=== PATIENT | female | born 1975 | race Caucasian/White ===

== ENCOUNTER 2020-11-28 06:06 | Emergency (ER) | payer MEDICAID ==
[~2020-11-28] VITALS: Ht 162.6 cm; Wt 81.8 kg
[2020-11-28 06:57] LABS: BASOPHILS % (AUTO) 1.1 % (0.0-2.0); EOSINOPHILS % (AUTO) 0.9 % (1.0-6.0); HEMATOCRIT 39.7 % (36-46); HEMOGLOBIN 12.9 g/dL (12.0-16.0); LYMPHOCYTES % (AUTO) 26.5 % (22.0-44.0); MEAN CORPUSCULAR HEMOGLOBIN 28.6 pg (26.0-34.0); MEAN CORPUSCULAR HGB CONC 32.6 G/dL (31.0-37.0); MEAN CORPUSCULAR VOLUME 88 fL (80-100); MONOCYTES # (AUTO) 0.6 K/uL (0.1-1.0); MONOCYTES % (AUTO) 7.6 % (2.0-9.0); NEUTROPHILS # (AUTO) 4.8 K/uL (1.8-7.7); NEUTROPHILS % (AUTO) 63.9 % (40.0-70.0); PLATELET COUNT (AUTO) 330 K/uL (150-450); RED BLOOD CELL COUNT(AUTO) 4.53 MIL/uL (4.00-5.20); RED CELL DISTRIBUTION WIDTH 13.7 % (11.5-14.5)
[2020-11-28 07:12] LABS: ANION GAP 3 mmol/L (8-16); CALCIUM, TOTAL 8.6 mg/dL (8.8-10.5); CARBON DIOXIDE 30 mmol/L (22-29); CHLORIDE 107 mmol/L (98-107); CREATININE 0.92 mg/dL (0.60-1.30); GLOMERULAR FILTR. RATE CALC > 60 mL/min (>60); GLUCOSE,RANDOM 102 mg/dL (70-110); POTASSIUM 4.7 mmol/L (3.5-5.1); SODIUM SERUM 140 mmol/L (136-145); UREA NITROGEN, BLOOD 11 mg/dL (7-18)
[2020-11-28 07:26] LABS: ALANINE AMINOTRANSFERASE 22 U/L (12-78); ALBUMIN 3.6 g/dL (3.4-5.0); ALKALINE PHOSPHATASE 82 U/L (46-116); ASPARTATE AMINOTRANSFERASE 15 U/L (15-37); BILIRUBIN,TOTAL 0.3 mg/dL (0.1-1.0); HCG,QUANTITATIVE < 1 mIU/mL (0-6); TOTAL PROTEIN, SERUM 7.3 g/dL (6.4-8.2)
[2020-11-28 08:49] VITALS: BP 131/72
== END 2020-11-28 08:53 | disposition home or self-care (01) ==
LOC: EMS 06:11
DX: F32.9 Major depressive disorder, single episode, unspecified (principal); F41.9 Anxiety disorder, unspecified
CPT/HCPCS: 36415; 80053; 84702; 85025; 99284; G0480

== ENCOUNTER 2022-11-02 15:24 | Inpatient (IN) | payer MEDICAID ==
[~2022-11-02] VITALS: Ht 162.6 cm; Wt 79.4 kg
[2022-11-02] MEDS ORDERED: LEVE250T PO (15:27)
[2022-11-02 17:11] LABS: AMPHET/METH SCREEN,URINE NEGATIVE (NEGATIVE); BARBITURATE SCREEN, URINE NEGATIVE (NEGATIVE); BENZODIAZEPINES SCREEN,URINE NEGATIVE (NEGATIVE); CANNABINOID SCREEN,URINE NEGATIVE (NEGATIVE); COCAINE SCREEN,URINE NEGATIVE (NEGATIVE); METHADONE SCREEN, URINE NEGATIVE (NEGATIVE); OPIATE SCREEN,URINE NEGATIVE (NEGATIVE); PHENCYCLIDINE SCREEN,URINE NEGATIVE (NEGATIVE)
[2022-11-02] MEDS ORDERED: ZOLPIDEM TARTRATE 10 MG TABLET PO PRN (17:15)
[2022-11-02] MEDS ORDERED: HALOPERIDOL 5 MG TABLET PO PRN (17:15)
[2022-11-02 17:33] LABS: APPEARANCE,URINE CLEAR (CLEAR); BILIRUBIN,URINE NEGATIVE (NEGATIVE); GLUCOSE, URINE (UA) NEGATIVE (NEGATIVE); KETONES,URINE NEGATIVE (NEGATIVE); LEUKOCYTE ESTERASE ,URINE NEGATIVE (NEGATIVE); NITRATE,URINE NEGATIVE (NEGATIVE); OCCULT BLOOD,URINE MODERATE (NEGATIVE); PH,URINE 5.5 (5.0-8.0); PROTEIN,URINE NEGATIVE (NEGATIVE); SPECIFIC GRAVITIY, URINE 1.011 (1.003-1.030); UROBILINOGEN,URINE <=1.0 mg/dL (<=1.0)
[2022-11-02 17:43] LABS: BACTERIA,URINE None Seen /HPF (None Seen); SQUAMOUS EPITHELIAL CELL,UR Few /LPF (None Seen); WBC,URINE None Seen /HPF (0-5)
[2022-11-02 17:51] LABS: BASOPHILS % (AUTO) 0.4 % (0.0-2.0); EOSINOPHILS % (AUTO) 0.9 % (1.0-6.0); HEMATOCRIT 37.3 % (36-46); LYMPHOCYTES # (AUTO) 2.9 K/uL (1.0-4.8); LYMPHOCYTES % (AUTO) 37.5 % (22.0-44.0); MEAN CORPUSCULAR HEMOGLOBIN 28.8 pg (26.0-34.0); MEAN CORPUSCULAR HGB CONC 32.3 G/dL (31.0-37.0); MEAN CORPUSCULAR VOLUME 89 fL (80-100); MONOCYTES # (AUTO) 0.6 K/uL (0.1-1.0); MONOCYTES % (AUTO) 8.2 % (2.0-9.0); NEUTROPHILS # (AUTO) 4.1 K/uL (1.8-7.7); PLATELET COUNT (AUTO) 293 K/uL (150-450); RED BLOOD CELL COUNT(AUTO) 4.17 MIL/uL (4.00-5.20); RED CELL DISTRIBUTION WIDTH 12.9 % (11.5-14.5)
[2022-11-02 18:03] LABS: ANION GAP 8 mmol/L (8-16); CALCIUM, TOTAL 8.8 mg/dL (8.8-10.5); CARBON DIOXIDE 26 mmol/L (22-29); CHLORIDE 105 mmol/L (98-107); CREATININE 0.91 mg/dL (0.60-1.30); GLOMERULAR FILTR. RATE CALC > 60 mL/min (>60); GLUCOSE,RANDOM 110 mg/dL (70-110); POTASSIUM 3.8 mmol/L (3.5-5.1); SODIUM SERUM 139 mmol/L (136-145)
[2022-11-02 18:11] LABS: ALANINE AMINOTRANSFERASE 12 U/L (12-78); ALBUMIN 3.3 g/dL (3.4-5.0); ALKALINE PHOSPHATASE 68 U/L (46-116); ASPARTATE AMINOTRANSFERASE 15 U/L (15-37); TOTAL PROTEIN, SERUM 6.4 g/dL (6.4-8.2)
[2022-11-02 18:12] LABS: BILIRUBIN,TOTAL 0.1 mg/dL (0.1-1.0)
[2022-11-02 19:27] LABS: COVID AG,FIA SOURCE NASAL SWAB
[2022-11-03] MEDS: LORazepam 2 MG TABLET PO PRN ×2 (12:22→19:47)
[2022-11-03] MEDS ORDERED: MAG HYDROX/AL HYDROX/SIMETH ES 30 ML SUSPENSION UDCUP PO PRN (14:45)
[2022-11-03] MEDS ORDERED: PETROLATUM,WHITE 28 GM JELLY TP PRN (14:45)
[2022-11-03] MEDS ORDERED: MAGNESIUM HYDROXIDE SUSPENSION 30 ML UDCUP PO PRN (14:45)
[2022-11-03] MEDS ORDERED: DOCUSATE SODIUM 100 MG CAPSULE PO PRN (14:45)
[2022-11-03] MEDS ORDERED: ONDANSETRON HCL 4 MG TABLET PO PRN (14:45)
[2022-11-03] MEDS ORDERED: IBUPROFEN 400 MG TABLET PO PRN (14:45)
[2022-11-03] MEDS ORDERED: NICOTINE 14 MG/24 HOUR PATCH TD PRN (14:45)
[2022-11-03] MEDS ORDERED: LOPERAMIDE HCL 2 MG CAPSULE PO PRN (14:45)
[2022-11-03] MEDS ORDERED: GuaiFENesin/D-METHORPHAN [SUGAR-FREE] 200-20MG/10 ML SYRUP UDCUP PO PRN (14:45)
[2022-11-03] MEDS ORDERED: ACETAMINOPHEN 325 MG TABLET PO PRN (14:45)
[2022-11-03] MEDS ORDERED: ALBUTEROL SULFATE HFA 90 MCG/PUFF 8 GM INHALER IH PRN (14:45)
[2022-11-03] MEDS ORDERED: CloNIDine HCL 0.1 MG TABLET PO PRN (14:45)
[2022-11-03 15:28] VITALS: BP 137/89; PULSE 84; RESP 18; TEMP 98.4; O2SAT 97
[2022-11-03] MEDS: LevETIRAcetam 250 MG TABLET PO SCH (17:13)
[2022-11-03 20:10] VITALS: BP 126/66; PULSE 56; RESP 19; TEMP 97.7; O2SAT 97
[2022-11-04] MEDS ORDERED: LORazepam 2 MG/ML VIAL ONE (08:24)
[2022-11-04] MEDS ORDERED: HALOPERIDOL LACTATE 5 MG/ML VIAL ONE (08:25)
[2022-11-04] MEDS ORDERED: DiphenhydrAMINE HCL 50 MG/ML VIAL ONE (08:25)
[2022-11-04] MEDS ORDERED: LORazepam 2 MG/ML VIAL IM ONE (08:30)
[2022-11-04] MEDS ORDERED: DiphenhydrAMINE HCL 50 MG/ML VIAL IM ONE (08:30)
[2022-11-04] MEDS ORDERED: HALOPERIDOL LACTATE 5 MG/ML VIAL IM ONE (08:30)
[2022-11-04 08:43] LABS: CHOL/HDL RATIO 2.6 (3.9-5.7); THYROID STIMULATING HORMONE 1.44 uIU/mL (0.36-3.74)
[2022-11-04] MEDS: LevETIRAcetam 250 MG TABLET PO SCH ×2 (08:51→16:54)
[2022-11-04] MEDS ORDERED: RisperiDONE 1 MG TABLET PO SCH (11:45)
[2022-11-04 18:30] VITALS: BP 115/75; PULSE 66; RESP 16; TEMP 97.8
== END 2022-11-04 17:40 | disposition left against medical advice (07) | DRG 753 ==
LOC: EMS 15:27 → 3EX 11-03 03:52 → UNDOADMIN 11-03 03:52 → B2S 11-03 11:13
PROVIDERS: ADMIT Psychiatry & Neurology Child & Adolescent Psychiatry; ATTEND Psychiatry & Neurology Child & Adolescent Psychiatry
DX: F31.4 Bipolar disorder, current episode depressed, severe, without psychotic features (principal); G40.909 Epilepsy, unspecified, not intractable, without status epilepticus; R45.851 Suicidal ideations; Z20.822 Contact with and (suspected) exposure to COVID-19; E78.5 Hyperlipidemia, unspecified; F41.9 Anxiety disorder, unspecified; F43.10 Post-traumatic stress disorder, unspecified; G47.00 Insomnia, unspecified; Z91.048 Other nonmedicinal substance allergy status; Z98.891 History of uterine scar from previous surgery
CPT/HCPCS: 74018; 80053; 80061; 80307; 81001; 83036; 84443; 85025; 99285; G0480; J1200; J1630; J2060; 36415-L1; 36415-TC

== ENCOUNTER 2023-02-06 21:04 | Inpatient (IN) | payer MEDICAID ==
[~2023-02-06] VITALS: Ht 162.6 cm; Wt 90.1 kg
[2023-02-06] MEDS ORDERED: ZOLPIDEM TARTRATE 10 MG TABLET PO PRN (22:45)
[2023-02-07] MEDS ORDERED: PNEUMOCOCCAL VACCINE POLYVALENT 0.5 ML SYRINGE [PPSV23] IM. ONE (06:15)
[2023-02-07] MEDS ORDERED: INFLUENZA VIRUS VACCINE QVS 2023-24 (6MO+)/PF 60 MCG/0.5 ML SYRINGE IM. ONE (06:15)
[2023-02-07 08:53] VITALS: BP 100/60; PULSE 54; RESP 18; TEMP 98.1; O2SAT 99
[2023-02-07] MEDS ORDERED: MAGNESIUM HYDROXIDE SUSPENSION 30 ML UDCUP PO PRN (11:45)
[2023-02-07] MEDS ORDERED: GuaiFENesin/D-METHORPHAN [SUGAR-FREE] 200-20MG/10 ML SYRUP UDCUP PO PRN (11:45)
[2023-02-07] MEDS ORDERED: LOPERAMIDE HCL 2 MG CAPSULE PO PRN (11:45)
[2023-02-07] MEDS ORDERED: CloNIDine HCL 0.1 MG TABLET PO PRN (11:45)
[2023-02-07] MEDS ORDERED: PETROLATUM,WHITE 28 GM JELLY TP PRN (11:45)
[2023-02-07] MEDS ORDERED: IBUPROFEN 400 MG TABLET PO PRN (11:45)
[2023-02-07] MEDS ORDERED: MAG HYDROX/ALUMINUM HYD/SIMETH ES 30 ML SUSPENSION UDCUP PO PRN (11:45)
[2023-02-07] MEDS ORDERED: ONDANSETRON HCL 4 MG TABLET PO PRN (11:45)
[2023-02-07] MEDS ORDERED: NICOTINE 14 MG/24 HOUR PATCH TD PRN (11:45)
[2023-02-07] MEDS ORDERED: ALBUTEROL SULFATE HFA 90 MCG/PUFF 8 GM INHALER IH PRN (11:45)
[2023-02-07] MEDS ORDERED: ACETAMINOPHEN 325 MG TABLET PO PRN (11:45)
[2023-02-07] MEDS ORDERED: DOCUSATE SODIUM 100 MG CAPSULE PO PRN (11:45)
[2023-02-07] MEDS: LORazepam 2 MG TABLET PO PRN (18:03)
[2023-02-07 20:54] VITALS: BP 122/84; PULSE 73; RESP 18; TEMP 97.8; O2SAT 98
[2023-02-08] MEDS: LORazepam 2 MG TABLET PO PRN (07:45)
[2023-02-08] MEDS: HALOPERIDOL 5 MG TABLET PO PRN (07:45)
[2023-02-08 08:06] LABS: HEMOGLOBIN A1C 4.9 % (3.8-5.6)
[2023-02-08 08:18] LABS: THYROID STIMULATING HORMONE 1.33 uIU/mL (0.36-3.74)
[2023-02-08 08:35] VITALS: BP 120/75; PULSE 73; RESP 16; TEMP 97.6; O2SAT 97
[2023-02-08] MEDS: QUEtiapine FUMARATE 25 MG TABLET PO SCH (20:54)
[2023-02-09 01:08] VITALS: BP 104/58; PULSE 56; RESP 17; TEMP 97.6; O2SAT 96
[2023-02-09 08:06] VITALS: BP 141/71; PULSE 87; RESP 18; TEMP 98; O2SAT 96
[2023-02-09] MEDS: LORazepam 2 MG TABLET PO PRN (08:11)
[2023-02-09] MEDS: HALOPERIDOL 5 MG TABLET PO PRN (08:11)
[2023-02-09] MEDS: QUEtiapine FUMARATE 25 MG TABLET PO SCH (20:03)
[2023-02-09 21:48] VITALS: BP 95/54; PULSE 97; RESP 18; TEMP 97.6; O2SAT 95
[2023-02-10 08:06] LABS: HEPATITIS C AB (EIA) Non Reactive (Non Reactive)
[2023-02-10] MEDS: HALOPERIDOL 5 MG TABLET PO PRN (08:12)
[2023-02-10] MEDS: LORazepam 2 MG TABLET PO PRN (08:12)
[2023-02-10 08:17] VITALS: BP 139/85; PULSE 98; RESP 18; TEMP 98; O2SAT 96
[2023-02-10 08:20] LABS: APPEARANCE,URINE HAZY (CLEAR); BILIRUBIN,URINE NEGATIVE (NEGATIVE); COLOR,URINE YELLOW (YELLOW); GLUCOSE, URINE (UA) NEGATIVE (NEGATIVE); KETONES,URINE NEGATIVE (NEGATIVE); LEUKOCYTE ESTERASE ,URINE LARGE (NEGATIVE); NITRATE,URINE NEGATIVE (NEGATIVE); OCCULT BLOOD,URINE NEGATIVE (NEGATIVE); PROTEIN,URINE TRACE mg/dL (NEGATIVE); SPECIFIC GRAVITIY, URINE 1.023 (1.003-1.030); UROBILINOGEN,URINE <=1.0 mg/dL (<=1.0)
[2023-02-10 08:26] LABS: ALCOHOL, URINE DRUG SCREEN NEGATIVE (NEGATIVE); AMPHET/METH SCREEN,URINE NEGATIVE (NEGATIVE); BARBITURATE SCREEN, URINE NEGATIVE (NEGATIVE); BENZODIAZEPINES SCREEN,URINE NEGATIVE (NEGATIVE); CANNABINOID SCREEN,URINE NEGATIVE (NEGATIVE); COCAINE SCREEN,URINE NEGATIVE (NEGATIVE); METHADONE SCREEN, URINE NEGATIVE (NEGATIVE); OPIATE SCREEN,URINE NEGATIVE (NEGATIVE); PHENCYCLIDINE SCREEN,URINE NEGATIVE (NEGATIVE)
[2023-02-10 08:43] LABS: BACTERIA,URINE Moderate /HPF (None Seen); RBC,URINE 0-2 /HPF (0-2); SQUAMOUS EPITHELIAL CELL,UR Moderate /LPF (None Seen)
[2023-02-10] MEDS: QUEtiapine FUMARATE 25 MG TABLET PO SCH (20:01)
[2023-02-10 23:45] VITALS: BP 118/80; PULSE 97; RESP 18; TEMP 98.1; O2SAT 98
[2023-02-11 08:44] VITALS: BP 137/91; PULSE 92; RESP 18; TEMP 97.9; O2SAT 97
[2023-02-11] MEDS: LORazepam 2 MG TABLET PO PRN (09:15)
[2023-02-11] MEDS ORDERED: QUET25TA PO (12:25)
[2023-02-11] MEDS ORDERED: QUET25TA36 PO (17:49)
== END 2023-02-11 15:00 | disposition home or self-care (01) | DRG 750 ==
LOC: B3A 02-07 07:44
PROVIDERS: ADMIT Psychiatry & Neurology Psychiatry; ATTEND Psychiatry & Neurology Psychiatry
PROC: GZHZZZZ Group Psychotherapy (ICD-10-PCS; principal; 2023-02-07)
DX: F25.1 Schizoaffective disorder, depressive type (principal); R45.851 Suicidal ideations; F43.12 Post-traumatic stress disorder, chronic; K59.00 Constipation, unspecified; G47.00 Insomnia, unspecified; F41.9 Anxiety disorder, unspecified; Z79.899 Other long term (current) drug therapy; Z59.00 Homelessness unspecified
CPT/HCPCS: 80307; 81001; 83036; 84443; 86803; 87086; 87186; 87340; 90686; 90732

== ENCOUNTER 2023-02-06 23:27 | Emergency (ER) | payer MEDICAID ==
[~2023-02-06] VITALS: Ht 162.6 cm; Wt 68.2 kg
[2023-02-06 23:54] VITALS: BP 148/82; PULSE 52; RESP 16; TEMP 98
[2023-02-07 01:02] LABS: BASOPHILS % (AUTO) 1.1 % (0.0-2.0); EOSINOPHILS % (AUTO) 1.3 % (1.0-6.0); HEMATOCRIT 35.1 % (36-46); HEMOGLOBIN 11.7 g/dL (12.0-16.0); LYMPHOCYTES # (AUTO) 3.6 K/uL (1.0-4.8); LYMPHOCYTES % (AUTO) 46.3 % (22.0-44.0); MEAN CORPUSCULAR HEMOGLOBIN 29.5 pg (26.0-34.0); MEAN CORPUSCULAR HGB CONC 33.4 G/dL (31.0-37.0); MEAN CORPUSCULAR VOLUME 88 fL (80-100); MONOCYTES # (AUTO) 0.6 K/uL (0.1-1.0); MONOCYTES % (AUTO) 8.2 % (2.0-9.0); NEUTROPHILS # (AUTO) 3.3 K/uL (1.8-7.7); NEUTROPHILS % (AUTO) 43.1 % (40.0-70.0); PLATELET COUNT (AUTO) 299 K/uL (150-450); RED BLOOD CELL COUNT(AUTO) 3.97 MIL/uL (4.00-5.20); RED CELL DISTRIBUTION WIDTH 12.7 % (11.5-14.5); WHITE BLOOD COUNT (AUTO) 7.7 K/uL (4.5-11.0)
[2023-02-07 01:15] LABS: ALCOHOL, BLOOD (SERUM) < 3 mg/dL (0-10)
[2023-02-07 01:22] LABS: ANION GAP 3 mmol/L (8-16); CALCIUM, TOTAL 8.6 mg/dL (8.8-10.5); CARBON DIOXIDE 28 mmol/L (22-29); CHLORIDE 103 mmol/L (98-107); CREATININE 1.19 mg/dL (0.60-1.30); GLOMERULAR FILTR. RATE CALC 49 mL/min (>60); GLUCOSE,RANDOM 100 mg/dL (70-110); POTASSIUM 3.7 mmol/L (3.5-5.1); SODIUM SERUM 134 mmol/L (136-145); UREA NITROGEN, BLOOD 20 mg/dL (7-18)
[2023-02-07 01:27] LABS: ALANINE AMINOTRANSFERASE 16 U/L (12-78); ALBUMIN 3.2 g/dL (3.4-5.0); ALKALINE PHOSPHATASE 74 U/L (46-116); ASPARTATE AMINOTRANSFERASE 13 U/L (15-37); BILIRUBIN,TOTAL 0.2 mg/dL (0.1-1.0); TOTAL PROTEIN, SERUM 6.7 g/dL (6.4-8.2)
[2023-02-07 04:15] LABS: COVID AG,FIA SOURCE NASAL SWAB
[2023-02-07 04:33] LABS: SARS-COV2 (COVID) ANTIGEN,FIA Negative (Negative)
== END 2023-02-07 07:37 ==
LOC: EMS 23:28
DX: F31.9 Bipolar disorder, unspecified (principal); F41.9 Anxiety disorder, unspecified; R56.9 Unspecified convulsions; Z20.822 Contact with and (suspected) exposure to COVID-19; Z98.890 Other specified postprocedural states
CPT/HCPCS: 99285; 87426; 80053; 85025; G0480

== ENCOUNTER 2023-02-07 10:15 | Emergency (ER) | payer MEDICAID, OTHER ==
[~2023-02-07] VITALS: Ht 162.6 cm; Wt 86.4 kg
[2023-02-07 10:44] VITALS: BP 141/87; PULSE 80; RESP 16; TEMP 98.3
[2023-02-07 11:05] LABS: BASOPHILS % (AUTO) 1.2 % (0.0-2.0); EOSINOPHILS % (AUTO) 1.1 % (1.0-6.0); HEMATOCRIT 38.1 % (36-46); HEMOGLOBIN 12.8 g/dL (12.0-16.0); LYMPHOCYTES # (AUTO) 1.5 K/uL (1.0-4.8); MEAN CORPUSCULAR HGB CONC 33.7 G/dL (31.0-37.0); MEAN CORPUSCULAR VOLUME 89 fL (80-100); MONOCYTES # (AUTO) 0.3 K/uL (0.1-1.0); MONOCYTES % (AUTO) 6.7 % (2.0-9.0); NEUTROPHILS # (AUTO) 3.1 K/uL (1.8-7.7); PLATELET COUNT (AUTO) 311 K/uL (150-450); RED BLOOD CELL COUNT(AUTO) 4.28 MIL/uL (4.00-5.20); RED CELL DISTRIBUTION WIDTH 12.8 % (11.5-14.5)
[2023-02-07 11:23] LABS: ANION GAP 7 mmol/L (8-16); CALCIUM, TOTAL 8.8 mg/dL (8.8-10.5); CARBON DIOXIDE 27 mmol/L (22-29); CHLORIDE 104 mmol/L (98-107); CREATININE 0.94 mg/dL (0.60-1.30); GLOMERULAR FILTR. RATE CALC > 60 mL/min (>60); GLUCOSE,RANDOM 94 mg/dL (70-110); SODIUM SERUM 138 mmol/L (136-145); UREA NITROGEN, BLOOD 15 mg/dL (7-18)
[2023-02-07 11:29] LABS: TROPONIN I-HIGH SENSITIVITY 9 ng/L (<51)
[2023-02-07 11:47] LABS: APPEARANCE,URINE CLEAR (CLEAR); BILIRUBIN,URINE NEGATIVE (NEGATIVE); COLOR,URINE LIGHT YELLOW (YELLOW); GLUCOSE, URINE (UA) NEGATIVE (NEGATIVE); KETONES,URINE NEGATIVE (NEGATIVE); LEUKOCYTE ESTERASE ,URINE TRACE (NEGATIVE); NITRATE,URINE NEGATIVE (NEGATIVE); OCCULT BLOOD,URINE NEGATIVE (NEGATIVE); PH,URINE 6.5 (5.0-8.0); PH,URINE DRUG SCREEN 6.5 (5.0-8.0); PROTEIN,URINE NEGATIVE (NEGATIVE); SPECIFIC GRAVITIY, URINE 1.017 (1.003-1.030); UROBILINOGEN,URINE <=1.0 mg/dL (<=1.0)
[2023-02-07 11:48] LABS: ALANINE AMINOTRANSFERASE 19 U/L (12-78); ALBUMIN 3.7 g/dL (3.4-5.0); ALKALINE PHOSPHATASE 82 U/L (46-116); ASPARTATE AMINOTRANSFERASE 16 U/L (15-37); BILIRUBIN,TOTAL 0.3 mg/dL (0.1-1.0); CREATINE KINASE, TOTAL ONLY 101 U/L (26-192); HCG,QUANTITATIVE 2 mIU/mL (0-6); TOTAL PROTEIN, SERUM 7.4 g/dL (6.4-8.2)
[2023-02-07 11:53] LABS: ALCOHOL, BLOOD (SERUM) < 3 mg/dL (0-10)
[2023-02-07 11:54] LABS: B-TYPE NATRIURETIC PEPTIDE 39 pg/mL (0-100)
[2023-02-07 11:54] LABS: BACTERIA,URINE None Seen /HPF (None Seen); RBC,URINE None Seen /HPF (0-2); SQUAMOUS EPITHELIAL CELL,UR Rare /LPF (None Seen); WBC,URINE 0-2 /HPF (0-5)
[2023-02-07 12:00] LABS: ALCOHOL, URINE DRUG SCREEN NEGATIVE (NEGATIVE); AMPHET/METH SCREEN,URINE NEGATIVE (NEGATIVE); BARBITURATE SCREEN, URINE NEGATIVE (NEGATIVE); BENZODIAZEPINES SCREEN,URINE NEGATIVE (NEGATIVE); CANNABINOID SCREEN,URINE NEGATIVE (NEGATIVE); COCAINE SCREEN,URINE NEGATIVE (NEGATIVE); METHADONE SCREEN, URINE NEGATIVE (NEGATIVE); OPIATE SCREEN,URINE NEGATIVE (NEGATIVE); PHENCYCLIDINE SCREEN,URINE NEGATIVE (NEGATIVE)
== END 2023-02-07 13:54 | disposition home or self-care (01) ==
LOC: EMS 10:19
DX: R45.851 Suicidal ideations (principal); F41.9 Anxiety disorder, unspecified; F31.9 Bipolar disorder, unspecified; Z98.890 Other specified postprocedural states; Z04.6 Encounter for general psychiatric examination, requested by authority
CPT/HCPCS: 99285; 70450; 71045; 80053; 82140; 82550; 83880; 84484; 84702; 85025; 36415; 93005; 80307; 81001; G0480

== ENCOUNTER 2023-07-30 10:36 | Inpatient (IN) | payer MEDICAID, OTHER ==
[~2023-07-30] VITALS: Ht 162.6 cm; Wt 90.4 kg
[~2023-07-30 10:36] MED LIST: QUET25TA PO; QUET25TA36 PO
[2023-07-30 11:49] LABS: BASOPHILS % (AUTO) 0.7 % (0.0-2.0); EOSINOPHILS % (AUTO) 0.4 % (1.0-6.0); HEMATOCRIT 41.6 % (36-46); HEMOGLOBIN 14.1 g/dL (12.0-16.0); LYMPHOCYTES # (AUTO) 2.4 K/uL (1.0-4.8); LYMPHOCYTES % (AUTO) 25.5 % (22.0-44.0); MEAN CORPUSCULAR HEMOGLOBIN 29.8 pg (26.0-34.0); MEAN CORPUSCULAR HGB CONC 33.9 G/dL (31.0-37.0); MEAN CORPUSCULAR VOLUME 88 fL (80-100); MONOCYTES # (AUTO) 0.6 K/uL (0.1-1.0); MONOCYTES % (AUTO) 6.1 % (2.0-9.0); NEUTROPHILS # (AUTO) 6.3 K/uL (1.8-7.7); NEUTROPHILS % (AUTO) 67.3 % (40.0-70.0); PLATELET COUNT (AUTO) 383 K/uL (150-450); RED BLOOD CELL COUNT(AUTO) 4.73 MIL/uL (4.00-5.20); RED CELL DISTRIBUTION WIDTH 12.9 % (11.5-14.5); WHITE BLOOD COUNT (AUTO) 9.4 K/uL (4.5-11.0)
[2023-07-30 11:59] LABS: ANION GAP 9 mmol/L (8-16); CALCIUM, TOTAL 9.1 mg/dL (8.8-10.5); CARBON DIOXIDE 25 mmol/L (22-29); CHLORIDE 103 mmol/L (98-107); CREATININE 0.84 mg/dL (0.60-1.30); GLOMERULAR FILTR. RATE CALC > 60 mL/min (>60); GLUCOSE,RANDOM 98 mg/dL (70-110); POTASSIUM 4.1 mmol/L (3.5-5.1); SODIUM SERUM 137 mmol/L (136-145); UREA NITROGEN, BLOOD 11 mg/dL (7-18)
[2023-07-30 12:01] LABS: ALCOHOL, BLOOD (SERUM) < 3 mg/dL (0-10)
[2023-07-30 13:51] LABS: ALCOHOL, URINE DRUG SCREEN NEGATIVE (NEGATIVE); AMPHET/METH SCREEN,URINE NEGATIVE (NEGATIVE); BARBITURATE SCREEN, URINE NEGATIVE (NEGATIVE); BENZODIAZEPINES SCREEN,URINE NEGATIVE (NEGATIVE); CANNABINOID SCREEN,URINE NEGATIVE (NEGATIVE); COCAINE SCREEN,URINE NEGATIVE (NEGATIVE); METHADONE SCREEN, URINE NEGATIVE (NEGATIVE); OPIATE SCREEN,URINE NEGATIVE (NEGATIVE); PHENCYCLIDINE SCREEN,URINE NEGATIVE (NEGATIVE)
[2023-07-30 14:48] LABS: COVID AG,FIA SOURCE NASAL SWAB
[2023-07-30 15:39] LABS: SARS-COV2 (COVID) ANTIGEN,FIA Negative (Negative)
[2023-07-30] MEDS: QUEtiapine FUMARATE 100 MG TABLET PO ONE (15:47)
[2023-07-30] MEDS: LORazepam 2 MG TABLET PO ONE (15:48)
[2023-07-30] MEDS ORDERED: HALOPERIDOL 5 MG TABLET PO PRN (22:30)
[2023-07-30 23:55] VITALS: RESP 18
[2023-07-31] MEDS ORDERED: CloNIDine HCL 0.1 MG TABLET PO PRN (06:45)
[2023-07-31] MEDS ORDERED: NICOTINE 14 MG/24 HOUR PATCH TD PRN (06:45)
[2023-07-31] MEDS ORDERED: LOPERAMIDE HCL 2 MG CAPSULE PO PRN (06:45)
[2023-07-31] MEDS ORDERED: MAGNESIUM HYDROXIDE SUSPENSION 30 ML UDCUP PO PRN (06:45)
[2023-07-31] MEDS ORDERED: ALBUTEROL SULFATE HFA 90 MCG/PUFF 8 GM INHALER IH PRN (06:45)
[2023-07-31] MEDS ORDERED: GuaiFENesin/D-METHORPHAN [SUGAR-FREE] 200-20MG/10 ML SYRUP UDCUP PO PRN (06:45)
[2023-07-31] MEDS ORDERED: DOCUSATE SODIUM 100 MG CAPSULE PO PRN (06:45)
[2023-07-31] MEDS ORDERED: PETROLATUM,WHITE 28 GM JELLY TP PRN (06:45)
[2023-07-31] MEDS ORDERED: ONDANSETRON HCL 4 MG TABLET PO PRN (06:45)
[2023-07-31] MEDS ORDERED: MAG HYDROX/ALUMINUM HYD/SIMETH ES 30 ML SUSPENSION UDCUP PO PRN (06:45)
[2023-07-31] MEDS: LORazepam 2 MG TABLET PO PRN (09:08)
[2023-07-31 09:36] VITALS: BP 121/91; PULSE 67; RESP 18; TEMP 98.3
[2023-07-31] MEDS: QUEtiapine FUMARATE 25 MG TABLET PO SCH (21:02)
[2023-07-31 21:46] VITALS: BP 123/86; PULSE 71; RESP 19; TEMP 97.9
[2023-08-01 08:36] LABS: BASOPHILS % (AUTO) 0.2 % (0.0-2.0); HEMATOCRIT 40.9 % (36-46); HEMOGLOBIN 13.5 g/dL (12.0-16.0); LYMPHOCYTES # (AUTO) 2.3 K/uL (1.0-4.8); LYMPHOCYTES % (AUTO) 31.2 % (22.0-44.0); MEAN CORPUSCULAR HEMOGLOBIN 29.4 pg (26.0-34.0); MEAN CORPUSCULAR VOLUME 89 fL (80-100); MONOCYTES # (AUTO) 0.5 K/uL (0.1-1.0); MONOCYTES % (AUTO) 6.7 % (2.0-9.0); NEUTROPHILS # (AUTO) 4.4 K/uL (1.8-7.7); NEUTROPHILS % (AUTO) 60.9 % (40.0-70.0); PLATELET COUNT (AUTO) 352 K/uL (150-450); RED CELL DISTRIBUTION WIDTH 12.8 % (11.5-14.5); WHITE BLOOD COUNT (AUTO) 7.2 K/uL (4.5-11.0)
[2023-08-01 08:53] LABS: HEMOGLOBIN A1C 5.3 % (3.8-5.6)
[2023-08-01] MEDS ORDERED: HALOPERIDOL LACTATE 5 MG/ML VIAL IM ONE (09:00)
[2023-08-01] MEDS ORDERED: LORazepam 2 MG/ML VIAL IM ONE (09:00)
[2023-08-01] MEDS ORDERED: DiphenhydrAMINE HCL 50 MG/ML VIAL IM ONE (09:00)
[2023-08-01 09:10] LABS: CHOL/HDL RATIO 2.7 (3.9-5.7); THYROID STIMULATING HORMONE 1.34 uIU/mL (0.36-3.74)
[2023-08-01 11:03] VITALS: BP 130/68; PULSE 71; RESP 18; TEMP 97.1
[2023-08-01 18:30] VITALS: BP 144/85; PULSE 86; RESP 18; TEMP 97.7; O2SAT 96
[2023-08-01] MEDS: ACETAMINOPHEN 325 MG TABLET PO PRN (18:38)
[2023-08-01 18:45] VITALS: BP 144/85; PULSE 87; TEMP 97.7
[2023-08-01 21:35] VITALS: BP 135/75; PULSE 89; RESP 18; TEMP 97.5
[2023-08-01] MEDS: IBUPROFEN 400 MG TABLET PO PRN (21:38)
[2023-08-01 23:52] VITALS: BP 135/89; PULSE 74; RESP 18; TEMP 97.7
[2023-08-02 10:26] VITALS: BP 133/70; PULSE 68; RESP 18; TEMP 97.7
[2023-08-02 10:45] VITALS: RESP 18
[2023-08-02 11:45] VITALS: BP 128/74; PULSE 70; RESP 18; TEMP 97.6
[2023-08-02] MEDS: BACITRACIN ZINC/POLYMYXIN B 14.2 GM OINTMENT TP SCH (13:27)
[2023-08-02 23:07] VITALS: BP 128/92; PULSE 82; RESP 18; TEMP 97.2
[2023-08-03 09:43] VITALS: BP 123/75; PULSE 67; RESP 16; TEMP 98.1
[2023-08-03 20:57] VITALS: RESP 18
[2023-08-04 09:38] VITALS: BP 150/98; PULSE 69; RESP 18; TEMP 98.2
[2023-08-04 20:57] VITALS: BP 162/86; PULSE 75; RESP 18; TEMP 98.6
[2023-08-05 10:45] VITALS: BP 125/78; PULSE 67; RESP 18; TEMP 97.9
[2023-08-05 20:57] VITALS: BP 139/70; PULSE 63; RESP 18; TEMP 97.8
[2023-08-06 09:20] VITALS: BP 122/77; PULSE 68; RESP 18; TEMP 96.3
[2023-08-06 16:47] VITALS: BP 127/70; PULSE 62; RESP 17
[2023-08-06 17:48] VITALS: BP 124/76; PULSE 64; RESP 18
[2023-08-06] MEDS: ZOLPIDEM TARTRATE 10 MG TABLET PO PRN (21:04)
[2023-08-06 21:10] VITALS: BP 132/89; RESP 19; TEMP 97.3
[2023-08-07 08:00] VITALS: BP 130/76; PULSE 74; RESP 18; TEMP 97
[2023-08-07 23:21] VITALS: BP 142/86; PULSE 67; RESP 18; TEMP 97.8
[2023-08-08 09:25] VITALS: BP 122/88; PULSE 66; RESP 18; TEMP 97.7
[2023-08-08 20:07] VITALS: BP 139/89; PULSE 70; RESP 18; TEMP 97.9
[2023-08-09 09:25] VITALS: BP 137/76; PULSE 63; RESP 18; TEMP 97.6
[2023-08-09 21:02] VITALS: BP 136/77; PULSE 68; RESP 18; TEMP 98.2
[2023-08-10 10:43] VITALS: BP 129/87; PULSE 78; RESP 19; TEMP 97.6
[2023-08-10 21:44] VITALS: BP 131/76; PULSE 68; RESP 18; TEMP 98.4
[2023-08-11 08:28] VITALS: BP 138/79; PULSE 70; RESP 18; TEMP 98.4
[2023-08-11] MEDS: TraZODone HCL 100 MG TABLET PO SCH (21:15)
[2023-08-11 21:31] VITALS: BP 136/79; PULSE 62; RESP 18; TEMP 98.3
[2023-08-12] MEDS ORDERED: TRAZ-257 PO ×2 (09:58→13:47)
[2023-08-12] MEDS ORDERED: QUET25TA36 PO (09:58)
[2023-08-12 10:13] VITALS: BP 136/77; PULSE 80; RESP 18; TEMP 98.5
[2023-08-12] MEDS ORDERED: BACI14.26 TP (13:53)
[2023-08-12] MEDS ORDERED: QUET25TA PO (21:33)
== END 2023-08-12 19:02 | disposition home or self-care (01) | DRG 750 ==
LOC: EMS 10:36 → 3EC 22:43 → 3EI 08-05 15:06
PROVIDERS: ADMIT Psychiatry & Neurology Psychiatry; ATTEND Psychiatry & Neurology Psychiatry
PROC: GZHZZZZ Group Psychotherapy (ICD-10-PCS; principal; 2023-07-31)
DX: F25.0 Schizoaffective disorder, bipolar type (principal); R45.851 Suicidal ideations; F41.9 Anxiety disorder, unspecified; G47.00 Insomnia, unspecified; F43.12 Post-traumatic stress disorder, chronic; F32.A Depression, unspecified; Z20.822 Contact with and (suspected) exposure to COVID-19; R03.0 Elevated blood-pressure reading, without diagnosis of hypertension; S01.01XA Laceration without foreign body of scalp, initial encounter; X58.XXXA Exposure to other specified factors, initial encounter; Y93.89 Activity, other specified; Y92.89 Other specified places as the place of occurrence of the external cause; Y99.8 Other external cause status; Z91.048 Other nonmedicinal substance allergy status; Z79.899 Other long term (current) drug therapy
CPT/HCPCS: 70450; 80048; 80061; 80307; 83036; 84443; 84703; 85025; 99285; G0480

== ENCOUNTER 2023-08-17 12:56 | Emergency (ER) | payer MEDICAID, OTHER ==
[~2023-08-17] VITALS: Ht 165.1 cm; Wt 90.9 kg
[~2023-08-17 12:56] MED LIST changes: +BACI14.26 TP; +TRAZ-257 PO
[2023-08-17 13:08] VITALS: BP 131/77; PULSE 78; RESP 18; TEMP 97.9
== END 2023-08-17 13:33 | disposition home or self-care (01) ==
LOC: EMS 12:56
DX: S01.01XD Laceration without foreign body of scalp, subsequent encounter (principal); Z91.048 Other nonmedicinal substance allergy status; W22.8XXD Striking against or struck by other objects, subsequent encounter
CPT/HCPCS: 99281; Z7502

== ENCOUNTER 2024-12-03 18:30 | Inpatient (IN) | payer MEDICAID, OTHER ==
[~2024-12-03] VITALS: Ht 162.6 cm; Wt 94.3 kg
[~2024-12-03 18:30] MED LIST changes: -BACI14.26 TP; -QUET25TA36 PO
[2024-12-03] MEDS ORDERED: ZOLPIDEM TARTRATE 10 MG TABLET PO PRN (20:15)
[2024-12-04 02:48] VITALS: BP 105/63; PULSE 66; RESP 16; TEMP 98.2; O2SAT 100
[2024-12-04] MEDS ORDERED: PNEUMOCOCCAL VACCINE POLYVALENT 0.5 ML SYRINGE [PPSV23] IM. ONE (03:30)
[2024-12-04] MEDS: PERMETHRIN 5% 60 GM CREAM TP ONE (08:01)
[2024-12-04 08:40] LABS: PLATELET COUNT (AUTO) 319 K/uL (150-450); RED BLOOD CELL COUNT(AUTO) 4.48 MIL/uL (4.00-5.20); RED CELL DISTRIBUTION WIDTH 12.9 % (11.5-14.5); WHITE BLOOD COUNT (AUTO) 6.6 K/uL (4.5-11.0)
[2024-12-04 09:13] LABS: ASPARTATE AMINOTRANSFERASE 19 U/L (15-37); CALCIUM, TOTAL 8.9 mg/dL (8.8-10.5); CREATININE 0.96 mg/dL (0.60-1.30); GLOMERULAR FILTR. RATE CALC > 60 mL/min (>60); GLUCOSE,RANDOM 87 mg/dL (70-110); SODIUM SERUM 140 mmol/L (136-145); TOTAL PROTEIN, SERUM 6.7 g/dL (6.4-8.2); UREA NITROGEN, BLOOD 16 mg/dL (7-18)
[2024-12-04 09:37] LABS: HCG,QUANTITATIVE < 1 mIU/mL (0-6)
[2024-12-04 09:45] VITALS: BP 117/81; PULSE 68; RESP 18; TEMP 98.5; O2SAT 96
[2024-12-04 10:13] LABS: ALCOHOL, BLOOD (SERUM) < 3 mg/dL (0-10)
[2024-12-04] MEDS: LORazepam 2 MG/ML VIAL IM ONE (10:31)
[2024-12-05] MEDS: LEVOTHYROXINE SODIUM 25 MCG TABLET PO SCH (06:27)
[2024-12-05 08:23] VITALS: BP 104/66; PULSE 62; RESP 18; TEMP 97.3; O2SAT 96
[2024-12-05 09:13] LABS: APPEARANCE,URINE CLEAR (CLEAR); GLUCOSE, URINE (UA) NEGATIVE (NEGATIVE); LEUKOCYTE ESTERASE ,URINE NEGATIVE (NEGATIVE); NITRATE,URINE NEGATIVE (NEGATIVE); OCCULT BLOOD,URINE NEGATIVE (NEGATIVE); PH,URINE DRUG SCREEN 6.5 (5.0-8.0); SPECIFIC GRAVITIY, URINE 1.010 (1.003-1.030)
[2024-12-05 09:18] LABS: ALCOHOL, URINE DRUG SCREEN NEGATIVE (NEGATIVE); AMPHET/METH SCREEN,URINE NEGATIVE (NEGATIVE); BARBITURATE SCREEN, URINE NEGATIVE (NEGATIVE); CANNABINOID SCREEN,URINE NEGATIVE (NEGATIVE); COCAINE SCREEN,URINE NEGATIVE (NEGATIVE); METHADONE SCREEN, URINE NEGATIVE (NEGATIVE)
[2024-12-05 20:08] VITALS: BP 117/64; PULSE 63; RESP 18; TEMP 98.5; O2SAT 98
[2024-12-06 08:05] VITALS: BP 119/74; PULSE 60; RESP 17; TEMP 96.6; O2SAT 98
[2024-12-06] MEDS ORDERED: LEVO25TA9 PO (10:42)
[2024-12-06] MEDS ORDERED: LEVE-71 PO (10:43)
[2024-12-06] MEDS ORDERED: AMLO-257 PO (10:45)
[2024-12-06] MEDS ORDERED: QUET25TA PO (10:46)
== END 2024-12-06 13:41 | disposition home or self-care (01) | DRG 761 ==
LOC: B2S 20:07
PROVIDERS: ADMIT Psychiatry & Neurology Child & Adolescent Psychiatry; ATTEND Psychiatry & Neurology Child & Adolescent Psychiatry
PROC: GZ56ZZZ Individual Psychotherapy, Supportive (ICD-10-PCS; 2024-12-04)
PROC: GZ58ZZZ Individual Psychotherapy, Cognitive-Behavioral (ICD-10-PCS; 2024-12-04)
PROC: GZ52ZZZ Individual Psychotherapy, Cognitive (ICD-10-PCS; principal; 2024-12-05)
DX: F25.1 Schizoaffective disorder, depressive type (principal); E03.9 Hypothyroidism, unspecified; I10 Essential (primary) hypertension; G40.909 Epilepsy, unspecified, not intractable, without status epilepticus; E66.9 Obesity, unspecified; G47.00 Insomnia, unspecified; F32.A Depression, unspecified; Z68.35 Body mass index [BMI] 35.0-35.9, adult; Z91.048 Other nonmedicinal substance allergy status
CPT/HCPCS: 80053; 80307; 81003; 84439; 84443; 84702; 85025; G0480; J1200; J1630; J2060